=== PATIENT | male | born 1990 | race Hispanic/Latino ===

== ENCOUNTER 2019-05-05 23:55 | Emergency (ER) | payer SELFPAY ==
[2019-05-06 00:29] LABS: RAPID GROUP A STREP NEGATIVE (NEGATIVE)
[2019-05-06] MEDS ORDERED: IBUPROFEN 800 MG TAB ONE (00:44)
[2019-05-06] MEDS ORDERED: MAG HYDROX/AL HYDROX/SIMETH ES 30 ML SUSP UDCUP ONE (00:58)
[2019-05-06] MEDS ORDERED: LIDOCAINE HCL 2% VISCOUS 15 ML UDCUP ONE (00:58)
[2019-05-06] MEDS ORDERED: CYCLOBENZAPRINE HCL 10 MG TABLET ONE (01:03)
== END 2019-05-06 01:26 | disposition home or self-care (01) ==
LOC: EDH 23:55
DX: J09.X3 Influenza due to identified novel influenza A virus with gastrointestinal manifestations (principal)
CPT/HCPCS: 71046; 87804; 87880